=== PATIENT | female | born 1990 | race African-American/Black ===

== ENCOUNTER 2021-03-10 17:39 | Emergency (ER) | payer SELFPAY ==
[~2021-03-10] VITALS: Ht 170.2 cm; Wt 89.1 kg
[2021-03-10 19:01] LABS: Eosinophils # (auto) 0.1 10 ^3/uL (0-0.8); Eosinophils % (auto) 0.8 % (0.0-7.0); Monocytes # (auto) 0.8 10 ^3/uL (0-1.3)
[2021-03-10 19:03] LABS: Basophils # (auto) 0.1 10 ^3/uL (0-0.2); Basophils % (auto) 0.6 % (0.0-2.0); Hematocrit 38.5 % (36.0-46.0); Hemoglobin 13.3 g/dL (12.2-16.2); Lymphocytes # (auto) 3.6 10 ^3/uL (0.4-5.4); Lymphocytes % (auto) 33.7 % (10.0-50.0); Mean Corpuscular Hemoglobin 26.5 pg (28.0-32.0); Mean Corpuscular Hgb Conc. 34.7 g/dL (32.0-36.0); Mean Corpuscular Volume 76.5 fL (80.0-100.0); Monocytes % (auto) 7.2 % (0.0-12.0); Neutrophils # (auto) 6.2 10 ^3/uL (1.6-8.6); Neutrophils % (auto) 57.7 % (37.0-80.0); Red Blood Cells 5.04 10^6/uL (4.0-5.20); Red Cell Distribution Width 14.4 % (11.8-14.3); White Blood Cell 10.7 10^3/uL (4.4-10.8)
[2021-03-10 19:09] LABS: Urine Bacteria NONE SEEN /hpf (None Seen); Urine Blood 2+ /uL (Negative); Urine Hyaline Cast FEW /lpf (0 - 2); Urine Mucus FEW (None Seen); Urine Specific Gravity 1.026 (1.001-1.035); Urine WBC 1 /hpf (0 - 5)
[2021-03-10 19:09] LABS: Albumin 3.8 g/dL (3.4-5.0); Calcium 9.1 mg/dL (8.5-10.1); Potassium 3.9 mmol/L (3.5-5.1)
[2021-03-10 19:13] LABS: BUN/Creatinine Ratio 14.7; Bilirubin, Total 0.2 mg/dL (0.2-1.0); Total Protein 7.9 g/dL (6.4-8.2)
[2021-03-10 21:15] VITALS: BP 160/85
== END 2021-03-10 21:30 | disposition home or self-care (01) ==
LOC: ER 17:39
DX: O20.0 Threatened abortion (principal); Z3A.00 Weeks of gestation of pregnancy not specified
CPT/HCPCS: 36415; 76801; 76817; 80053; 81001; 84702; 85025; 85049

== ENCOUNTER 2021-03-25 13:54 | Emergency (ER) | payer OTHER ==
[~2021-03-25] VITALS: Ht 170.2 cm; Wt 86.2 kg
[2021-03-25 14:38] LABS: Urine Bacteria NONE SEEN /hpf (None Seen); Urine Blood Negative /uL (Negative); Urine Specific Gravity 1.018 (1.001-1.035); Urine WBC 1 /hpf (0 - 5)
[2021-03-25 15:41] LABS: Basophils # (auto) 0 10 ^3/uL (0-0.2); Eosinophils # (auto) 0.1 10 ^3/uL (0-0.8); Monocytes # (auto) 0.7 10 ^3/uL (0-1.3); Neutrophils # (auto) 5.6 10 ^3/uL (1.6-8.6)
[2021-03-25 15:43] LABS: Basophils % (auto) 0.4 % (0.0-2.0); Eosinophils % (auto) 1.5 % (0.0-7.0); Hematocrit 39.5 % (36.0-46.0); Hemoglobin 13.5 g/dL (12.2-16.2); Lymphocytes % (auto) 32.1 % (10.0-50.0); Mean Corpuscular Hemoglobin 26.3 pg (28.0-32.0); Mean Corpuscular Hgb Conc. 34.2 g/dL (32.0-36.0); Mean Corpuscular Volume 76.9 fL (80.0-100.0); Nucleated Red Blood Cells % 0.2 %; Red Blood Cells 5.13 10^6/uL (4.0-5.20); Red Cell Distribution Width 14.4 % (11.8-14.3); White Blood Cell 9.4 10^3/uL (4.4-10.8)
[2021-03-25 15:49] LABS: Albumin 3.8 g/dL (3.4-5.0); Calcium 9.2 mg/dL (8.5-10.1)
[2021-03-25 15:53] LABS: BUN/Creatinine Ratio 14.7; Bilirubin, Total 0.3 mg/dL (0.2-1.0)
[2021-03-25 16:56] VITALS: BP 165/92
== END 2021-03-25 17:05 | disposition home or self-care (01) ==
LOC: ER 13:54
DX: O03.9 Complete or unspecified spontaneous abortion without complication (principal); Z3A.01 Less than 8 weeks gestation of pregnancy
CPT/HCPCS: 36415; 80053; 81001; 84702; 85025

== ENCOUNTER 2022-06-23 10:58 | Emergency (ER) | payer SELFPAY ==
[~2022-06-23] VITALS: Ht 170.2 cm; Wt 94.1 kg
[2022-06-23 11:09] VITALS: BP 165/97
[2022-06-23] MEDS ORDERED: IBUP800T27 PO (12:57)
[2022-06-23] MEDS ORDERED: IBUPROFEN 800 MG TAB PO ONE (13:00)
== END 2022-06-23 13:23 | disposition home or self-care (01) ==
LOC: ER 10:58
DX: S93.401A Sprain of unspecified ligament of right ankle, initial encounter (principal); W19.XXXA Unspecified fall, initial encounter; Y93.89 Activity, other specified; Y92.89 Other specified places as the place of occurrence of the external cause; Y99.8 Other external cause status
CPT/HCPCS: 73610